=== PATIENT | male | born 1975 | race Two or more races ===

== ENCOUNTER 2020-11-28 09:23 | Day surgery (SDC) | payer OTHER ==
[~2020-11-28] VITALS: Ht 175.3 cm; Wt 83.4 kg
[2020-11-28] MEDS ORDERED: LACTATED RINGERS 1,000 ML IV SCH (10:00)
[2020-11-28] MEDS ORDERED: INDOCYANINE GREEN 25 MG VIAL IV ONE (10:00)
[2020-11-28] MEDS ORDERED: CHLORHEXIDINE 15 ML UDC PO ONE (10:00)
[2020-11-28 10:07] VITALS: BP 121/84
[2020-11-28] MEDS ORDERED: INDOCYANINE GREEN 25 MG VIAL ONE (10:30)
[2020-11-28] MEDS ORDERED: EPINEPHRINE 1 MG/ML, 1ML ONE (10:57)
[2020-11-28] MEDS ORDERED: BUPIVACAINE/PF 0.5% ONE (10:57)
[2020-11-28] MEDS ORDERED: MIDAZOLAM 1 MG/ML, 2ML ONE (11:38)
[2020-11-28] MEDS ORDERED: FENTANYL PF 250 MCG/5ML ONE (11:38)
[2020-11-28] MEDS ORDERED: MEPERIDINE/PF 25MG/0.5ML IVPush PRN (12:30)
[2020-11-28] MEDS ORDERED: HYDROmorphone 2 MG/ML, 1ML IVPush PRN (12:30)
[2020-11-28] MEDS ORDERED: ALBUTEROL SULFATE 2.5 MG/3 ML NPPB PRN (12:30)
[2020-11-28] MEDS ORDERED: hydrALAzine 20 MG/ML, 1ML IV PRN (12:30)
[2020-11-28] MEDS ORDERED: KETOROLAC 30 MG/1 ML IV PRN (12:30)
[2020-11-28] MEDS ORDERED: PROMETHAZINE 25 MG/ML, 1ML IV PRN (12:30)
[2020-11-28] MEDS ORDERED: LABETALOL 5MG/ML, 20ML IV PRN (12:30)
[2020-11-28] MEDS ORDERED: ACETAMINOPHEN 325 MG TABLET PO PRN (12:30)
[2020-11-28] MEDS ORDERED: DIAZEPAM 5 MG/ML, 2ML IVPush PRN (12:30)
[2020-11-28] MEDS ORDERED: OXYcodone 5 MG/5 ML ORAL.SOL UDC PO PRN (12:30)
[2020-11-28] MEDS ORDERED: ONDANSETRON 2MG/ML, 2ML ONE (12:34)
[2020-11-28] MEDS ORDERED: NEOSTIGMINE 1 MG/ML, 10ML ONE (12:34)
[2020-11-28] MEDS ORDERED: SUCCINYLCHOLINE 20 MG/ML, 10ML ONE (12:34)
[2020-11-28] MEDS ORDERED: CEFAZOLIN 1,000 MG ONE (12:34)
[2020-11-28] MEDS ORDERED: SUGAMMADEX 200 MG/2 ML IVPush ONE (12:34)
[2020-11-28] MEDS ORDERED: GLYCOPYRROLATE 0.2MG/1ML, 5ML ONE (12:34)
[2020-11-28] MEDS ORDERED: ROCURONIUM 10MG/ML,5ML ONE (12:34)
[2020-11-28] MEDS ORDERED: PROPOFOL 10 MG/ML, 20ML ONE (12:34)
[2020-11-28] MEDS ORDERED: FENTANYL PF 100 MCG/2ML ONE (12:54)
[2020-11-28] MEDS: FENTANYL PF 100 MCG/2ML IV PRN ×2 (12:55→13:22)
[2020-11-28] MEDS ORDERED: HYDR-2214 PO (12:56)
[2020-11-28] MEDS ORDERED: ONDA4TAB7 PO (12:56)
[2020-11-28] MEDS ORDERED: OXYcodone 5 MG/5 ML ORAL.SOL UDC ONE (13:11)
[2020-11-28] MEDS ORDERED: ONDANSETRON ODT 4 MG PO PRN (15:00)
== END 2020-11-28 15:00 | disposition home or self-care (01) ==
LOC: OUT 09:23
PROVIDERS: ATTEND Surgery
DX: K82.8 Other specified diseases of gallbladder (principal); K76.0 Fatty (change of) liver, not elsewhere classified
CPT/HCPCS: 47562; 88304; J0171; J0330; J0690; J1885; J2250; J2405; J2704; J2710; J3010; J7120; Q0162